=== PATIENT | female | born 1930 | race Caucasian/White ===

== ENCOUNTER 2017-06-28 08:54 | Emergency (ER) | payer MEDICARE, OTHER ==
[~2017-06-28] VITALS: Ht 160 cm; Wt 54.4 kg
[~2017-06-28 08:54] MED LIST: AMOXICILLIN 50500 MG PO; APAP500 PO; ARTIFICIAL TEA1 EACH OP; ASPIRIN325 PO; BENADRYL25 MG PO; CARVEDILOL3.125 MG PO; CEFDINIR300 MG PO; CLONIDINE0.1 PO; COREG3.125 MG PO; COSOPT PF EYE1 EACH OP; DULCOLAX5 MG PO; DUONEB 2.5-0.5 M3 ML INH; ELIQUIS5 MG PO; FLOMAX0.4 MG PO; IBUPROFEN 400400 M2 PO; LIPITOR10 MG PO; LUMIGAN2.5 M1 OP; MELATONIN5 M1 PO; MILK OF MA400 MG/5 M PO; MIRALAX17 GM PO; MYLANTA PO; NORVASC2.5 MG PO; ONDANSETRON HCL4 M2 PO; OYST-CAL-500500 MG PO; PACERONE 200 M200 M1 PO; PHENERGAN 25 MG25 M1 PO; PROTONIX40 M1 PO; SENOKOT-S1 TA1 PO; TRAMADOL 50 MG50 MG PO; TYLENOL325 MG PO; VITAMIN B-12500 MCG PO; VITAMIN C500 M1 PO; VITAMINC500 PO; VOLTAREN GEL 1100 G2 TOP; XALATAN2.5 ML OPHTHALMIC; XANAX 0.25 MG0.25 MG PO
[2017-06-28] MEDS ORDERED: NORVASC2.5 MG PO (09:13)
[2017-06-28] MEDS ORDERED: XANAX 0.25 MG0.25 MG PO (09:14)
[2017-06-28 09:25] LABS: ABSOLUTE BASOPHILS 0.1 thou/uL (0.0-0.2); ABSOLUTE LYMPHOCYTES 1.8 thou/uL (0.8-5.3); ABSOLUTE MONOCYTES 0.8 thou/uL (0.0-1.2); BASOPHILS 0.8 %; EOSINOPHILS 0.5 %; HEMATOCRIT 31.2 % (37.0-47.0); HEMOGLOBIN 10.2 gm/dL (12.0-15.0); LYMPHOCYTES 20.7 %; MCH 31.9 pg (26.0-34.0); MCHC 32.9 g/dL (28.0-37.0); MONOCYTES 9.4 %; MPV 7.9 fl. (7.2-11.1); NUCLEATED RBCS 0 /100WBC; PLATELET COUNT* 278 thou/uL (150-400); POLYS 68.6 %; RBC 3.21 mil/uL (4.20-5.00); RDW-CV 15.4 % (10.5-14.5); WBC 8.7 thou/uL (4.0-11.0)
[2017-06-28 09:35] LABS: APTT 29.2 Seconds (25.0-31.3); INR 1.1; PROTIME 10.5 Seconds (9.20-11.50)
[2017-06-28 09:37] LABS: ANION GAP 8 mmol/L (7-16); BUN 39 mg/dL (7-18); CALCIUM 8.6 mg/dL (8.5-10.1); CHLORIDE 105 mmol/L (98-107); CO2 29 mmol/L (21-32); CREATININE 1.3 mg/dL (0.6-1.3); GLUCOSE 100 mg/dL (70-99); SODIUM 142 mmol/L (136-145)
[2017-06-28 09:44] LABS: ALBUMIN 2.9 g/dL (3.4-5.0); ALKALINE PHOSPHATASE 73 U/L (46-116); LIPASE 209 U/L (73-393); SGOT 19 U/L (15-37); SGPT 17 U/L (30-65); TOTAL BILIRUBIN 0.3 mg/dL (<0.1-1.0); TOTAL PROTEIN 6.6 g/dL (6.4-8.2); TROPONIN-I LEVEL <0.06 ng/mL (<0.06)
[2017-06-28 11:03] LABS: URINE BILIRUBIN NEGATIVE (Negative); URINE BLOOD NEGATIVE (Negative); URINE CLARITY CLEAR; URINE COLOR YELLOW; URINE GLUCOSE-RANDOM NEGATIVE (Negative); URINE KETONES NEGATIVE (Negative); URINE LEUKOCYTES-REFLEX 1+ (Negative); URINE NITRITE-REFLEX NEGATIVE (Negative); URINE PROTEIN TRACE (Negative); URINE UROBILINOGEN 0.2 E.U./dl (0.2-1.0)
[2017-06-28 11:08] LABS: BACTERIA-REFLEX >30 Many /HPF (None Seen); CASTS None Seen /LPF (None Seen); CRYSTALS None Seen /LPF (None Seen); MUCUS 0-3 Light strn/LPF (None Seen); SQUAMOUS 0-3 Few /LPF (0-3); URINE RBC 0-2 Rare /HPF (0-2); URINE WBC-REFLEX 6-15 Few /HPF (0-5)
[2017-06-28 11:31] VITALS: BP 159/62
--- NOTE | 2017-06-28 15:09 | EKG ---
[place] [address] ELECTROCARDIOGRAM REPORT Name: LISSETTE MOLINA Room: [facility] ([place], [place])#: [id number] Admission: 06/28/17 Attend Phys: Discharge: 06/28/17 Date of : [birth year] Report #: [id number] THIS REPORT FOR: //name// [facility] ED Test Date: 2017-06-28 Test Time: 09:01:31 Pat Name: LISSETTE MOLINA Department: Room: Gender: F Talent Assistant: MARKO Nguyen : 1930 Requested By: Roni Gutierrez Order Number: [id number] MD: Keenan Alfred Measurements Intervals [place] Rate: 55 P: -19 HI: 174 QRS: -23 QRSD: 107 T: 117 QT: 488 QTc: 467 Interpretive Statements Sinus bradycardia Borderline left axis deviation Probable anterior infarct, age indeterminate Baseline wander in lead(s) V3 Compared to ECG 10/25/2016 12:35:46 Myocardial infarct finding now present Electronically Signed On 06-28-2017 15:09:31 CDT by Keenan Alfred [email or web address] <ELECTRONICALLY SIGNED> By: Keenan Alfred MD, [facility] 06/28/17 1509 0901 0901 Keenan Alfred MD, [facility] /EPI
== END 2017-06-28 11:32 | disposition home or self-care (01) ==
LOC: M.ERS 08:54
PROVIDERS: Family Medicine
DX: R55 Syncope and collapse (principal); I10 Essential (primary) hypertension; F41.9 Anxiety disorder, unspecified; J44.9 Chronic obstructive pulmonary disease, unspecified; F03.90 Unspecified dementia, unspecified severity, without behavioral disturbance, psychotic disturbance, mood disturbance, and anxiety; I48.91 Unspecified atrial fibrillation; Z86.73 Personal history of transient ischemic attack (TIA), and cerebral infarction without residual deficits; Z87.440 Personal history of urinary (tract) infections; Z88.2 Allergy status to sulfonamides

== ENCOUNTER 2017-07-28 05:46 | Emergency (ER) | payer MEDICARE, OTHER ==
[~2017-07-28] VITALS: Ht 165.1 cm; Wt 51.3 kg
[2017-07-28 06:12] LABS: ABSOLUTE BASOPHILS 0.1 thou/uL (0.0-0.2); ABSOLUTE EOSINOPHILS 0.3 thou/uL (0.0-0.7); ABSOLUTE LYMPHOCYTES 1.5 thou/uL (0.8-5.3); ABSOLUTE MONOCYTES 0.9 thou/uL (0.0-1.2); ABSOLUTE NEUTROPHILS 10.3 thou/uL (1.6-8.1); HEMATOCRIT 30.1 % (37.0-47.0); LYMPHOCYTES 11.6 %; MCH 32.1 pg (26.0-34.0); MCHC 33.2 g/dL (28.0-37.0); MCV 96.5 fL (80.0-100.0); MONOCYTES 7.1 %; MPV 7.3 fl. (7.2-11.1); NUCLEATED RBCS 0 /100WBC; PLATELET COUNT* 358 thou/uL (150-400); POLYS 78.3 %; RBC 3.12 mil/uL (4.20-5.00); RDW-CV 14.5 % (10.5-14.5); WBC 13.1 thou/uL (4.0-11.0)
[2017-07-28 06:24] LABS: ANION GAP 6 mmol/L (7-16); BUN 25 mg/dL (7-18); CHLORIDE 102 mmol/L (98-107); CO2 30 mmol/L (21-32); GLUCOSE 102 mg/dL (70-99); POTASSIUM 4.1 mmol/L (3.5-5.1); SODIUM 138 mmol/L (136-145)
[2017-07-28 06:31] LABS: ALKALINE PHOSPHATASE 78 U/L (46-116); SGOT 19 U/L (15-37); SGPT 22 U/L (30-65); TOTAL BILIRUBIN 0.4 mg/dL (<0.1-1.0); TOTAL PROTEIN 7.5 g/dL (6.4-8.2); TROPONIN-I LEVEL <0.06 ng/mL (<0.06)
[2017-07-28 08:30] LABS: URINE BILIRUBIN NEGATIVE (Negative); URINE BLOOD NEGATIVE (Negative); URINE CLARITY CLEAR; URINE COLOR YELLOW; URINE GLUCOSE-RANDOM NEGATIVE (Negative); URINE KETONES NEGATIVE (Negative); URINE LEUKOCYTES-REFLEX NEGATIVE (Negative); URINE NITRITE-REFLEX NEGATIVE (Negative); URINE PROTEIN NEGATIVE (Negative); URINE SPECIFIC GRAVITY <= 1.005 (1.005-1.030); URINE UROBILINOGEN 0.2 E.U./dl (0.2-1.0)
[2017-07-28 09:11] VITALS: BP 178/59
--- NOTE | 2017-07-29 17:19 | EKG ---
[place] [address] ELECTROCARDIOGRAM REPORT Name: LISSETTE MOLINA Room: [facility]#: [id number] Admission: 07/28/17 Attend Phys: Discharge: 07/28/17 Date of : [birth year] Report #: [id number] THIS REPORT FOR: //name// [facility] ED Test Date: 2017-07-28 Test Time: 06:06:23 Pat Name: LISSETTE MOLINA Department: Room: Gender: F Urologist Physician: LISA : 1930 Requested By: Nathaly Carlisle Order Number: [id number] MD: Mickey Oliver Measurements Intervals [place] Rate: 67 P: -11 MN: 195 QRS: -14 QRSD: 88 T: 53 QT: 435 QTc: 460 Interpretive Statements Sinus rhythm Compared to ECG 06/28/2017 09:01:31 Sinus bradycardia no longer present Myocardial infarct finding no longer present Electronically Signed On 07-29-2017 17:19:34 CDT by Mickey Oliver [email or web address] <ELECTRONICALLY SIGNED> By: Mickey Oliver MD, [facility] 07/29/17 1719 5 5 Mickey Oliver MD, FACC /EPI
== END 2017-07-28 09:11 | disposition home or self-care (01) ==
LOC: M.ERS 05:46
PROVIDERS: Emergency Medicine
DX: S09.8XXA Other specified injuries of head, initial encounter (principal); I10 Essential (primary) hypertension; F41.9 Anxiety disorder, unspecified; J44.9 Chronic obstructive pulmonary disease, unspecified; I48.91 Unspecified atrial fibrillation; F03.90 Unspecified dementia, unspecified severity, without behavioral disturbance, psychotic disturbance, mood disturbance, and anxiety; Z86.73 Personal history of transient ischemic attack (TIA), and cerebral infarction without residual deficits; Z88.1 Allergy status to other antibiotic agents; X58.XXXA Exposure to other specified factors, initial encounter; Y93.89 Activity, other specified; Y92.89 Other specified places as the place of occurrence of the external cause; Y99.8 Other external cause status